=== PATIENT | male | born 1950 | race Caucasian/White ===

== ENCOUNTER 2016-11-19 08:50 | Day surgery (SDC) | payer MEDICARE ==
[~2016-11-19] VITALS: Ht 185.4 cm; Wt 97.8 kg
[~2016-11-19 08:50] MED LIST: 0.9% Sodium Chloride 1,000 ML IV SCH; ASPI-973 PO; MULT1CAP33 PO; Sodium Chloride LOK Flush 10 mL Syringe IV PRN; fentaNYL-PF 50 mCg/mL 2 mL Inj IVPUSH PRN
[2016-11-19 09:48] VITALS: BP 114/77; PULSE 54; RESP 17; O2SAT 99
[2016-11-19 11:03] VITALS: BP 110/77; PULSE 52; RESP 12; O2SAT 95
[2016-11-19 11:13] VITALS: BP 108/70; PULSE 52; RESP 12; O2SAT 97
[2016-11-19 11:23] VITALS: BP 120/78; PULSE 54; RESP 12; O2SAT 98
[2016-11-19 11:32] VITALS: BP 103/75; PULSE 52; RESP 14; O2SAT 100
--- NOTE | 2016-11-19 11:44 | ENDO ---
[address] [address] ENDOSCOPY PROCEDURE PATIENT: JI ALMANZA : 1950 MR#: [id number] ADMIT: 11/19/2016 JOB ID: [id number] PROCEDURE: Colonoscopy. INDICATION: Screening. ANESTHESIA: Patient's ASA classification is two. Mallampati score is two. MEDICATIONS: 1. Versed 4 mg. 2. Fentanyl 100 mcg. INSTRUMENT USED: 1. PCF H 180 al prep quality is fair. PROCEDURE DETAILS: After informed consent was obtained, the patient was brought to the GI suite, where he was placed on oxygen via nasal cannula and monitored with continuous pulse oximeter, telemetry, and blood pressure monitoring. A time-out was performed. Then, he was placed in a left lateral decubitus position and medications were administered for sedation. A digital rectal exam was performed with palpation of prostate was unremarkable. The colonoscope was then inserted into the rectum and advanced under direct visualization to the cecum, which identified by the presence of the ileocecal valve and appendiceal orifice. Once it was reached the colonoscope was withdrawn back to the rectum as the mucosa and lumen were examined. In the rectum, retroflexion was performed. Following retroflexion, remaining air in the rectum was suctioned, and procedure was completed. FINDINGS: Normal exam from rectum to cecum. IMPRESSION: Normal colonoscopy. RECOMMENDATIONS: Repeat colonoscopy in 10 years, sooner if symptoms should dictate. COMPLICATIONS: None estimated blood loss zero MTDD
== END 2016-11-19 23:59 | disposition home or self-care (01) ==
LOC: END 08:50
PROVIDERS: ATTEND Internal Medicine Gastroenterology
DX: Z12.11 Encounter for screening for malignant neoplasm of colon (principal)
CPT/HCPCS: G0121; G0500; J2250; J7030